=== PATIENT | female | born 1970 | race African-American/Black ===

== ENCOUNTER 2016-10-14 16:54 | Emergency (ER) | payer SELFPAY ==
[~2016-10-14] VITALS: Ht 160 cm; Wt 98.9 kg
[2016-10-14 17:02] VITALS: BP 139/80
--- NOTE | 2016-10-14 17:56 | ED.ADGEN ---
Past Medical History Past Medical History: Cancer, Hypertension Past Surgical History: , Hysterectomy Additional Past Surgical Histo: Left mastectomy Alcohol Use: Occasionally Additional Information: ETOH today Drug Use: None Assessment Additional comments: I signed up for this patient. She left without being seen prior to being roomed. JENNIFFER FOWLER MD Oct 14, 2016 17:56
== END 2016-10-14 17:55 | disposition left against medical advice (07) ==
LOC: ER 16:54
DX: R56.9 Unspecified convulsions (principal); I10 Essential (primary) hypertension; Z90.710 Acquired absence of both cervix and uterus; F17.200 Nicotine dependence, unspecified, uncomplicated; Z53.21 Procedure and treatment not carried out due to patient leaving prior to being seen by health care provider
CPT/HCPCS: 99281

== ENCOUNTER 2017-09-24 09:55 | Inpatient (IN) | payer BC ==
[2017-09-24] MEDS: MORPHINE SULFATE 4 MG/ML DISP.SYRIN. IV ×4 (11:11→23:12)
[2017-09-24] MEDS: LABETALOL 20 MG/4 ML DISP.SYRIN. IVP (11:11)
[2017-09-24] MEDS: POTASSIUM CL 20MEQ D5-0.45NACL 1,000 ML IV ×2 (13:45→19:36)
[2017-09-24] MEDS: fentaNYL PF VIAL 100 MCG/2 ML VIAL IV (15:37)
[2017-09-24] MEDS: KETOROLAC 30 MG/ML INJ. IV (15:37)
[2017-09-24] MEDS: SALIVA STIMULANT AGENT 44ML SPRAY BOTTLE. PO (16:00)
[2017-09-24] MEDS: hydrALAZINE 20 MG/ML VIAL. IVP (16:19)
[2017-09-24] MEDS: diphenhydrAMINE 50 MG/ML VIAL IVP (23:13)
[2017-09-24] MEDS: PHENOL ORAL SPRAY 177ML BOTTLE. PO (23:20)
[2017-09-25] MEDS: PHENOL ORAL SPRAY 177ML BOTTLE. PO ×4 (02:03→22:00)
[2017-09-25] MEDS: MORPHINE SULFATE 4 MG/ML DISP.SYRIN. IV ×6 (02:03→20:09)
[2017-09-25] MEDS: POTASSIUM CL 20MEQ D5-0.45NACL 1,000 ML IV ×2 (05:30→20:01)
[2017-09-25 07:17] LABS: ADD MAN DIFF? NO
[2017-09-25 07:18] LABS: BASO % 0 % (0-3); EOS % 0 % (0-3); HEMATOCRIT 40.8 % (36.0-47.0); HEMOGLOBIN 13.4 g/dL (12.0-15.5); LYMPH # 1.3 x10^3/uL (1.0-4.8); LYMPH % 33 % (24-48); MEAN CORPUSCULAR HEMOGLOBIN 30 pg (25-35); MEAN CORPUSCULAR HGB CONC 33 g/dL (31-37); MEAN CORPUSCULAR VOLUME 91 fL (79-100); MONO # 0.4 x10^3/uL (0.0-1.1); MONO % 9 % (0-9); NEUT # 2.3 x10^3uL (1.8-7.7); NEUT % 57 % (31-73); PLATELET COUNT 152 x10^3/uL (140-400); RED BLOOD COUNT 4.51 x10^6/uL (3.50-5.40); RED CELL DISTRIBUTION WIDTH 14.6 % (11.5-14.5); WHITE BLOOD COUNT 3.9 x10^3/uL (4.0-11.0)
[2017-09-25 07:46] LABS: ALBUMIN 3.2 g/dL (3.4-5.0); ALBUMIN/GLOBULIN RATIO 0.8 (1.0-1.7); ALK PHOS 67 U/L (46-116); ALT (SGPT) 32 U/L (14-59); ANION GAP 8 (6-14); AST (SGOT) 28 U/L (15-37); BLOOD UREA NITROGEN 10 mg/dL (7-20); BUN/CREATININE RATIO 11 (6-20); CALCIUM 8.4 mg/dL (8.5-10.1); CARBON DIOXIDE 29 mmol/L (21-32); CHLORIDE 103 mmol/L (98-107); CREATININE 0.9 mg/dL (0.6-1.0); GFR 80.9; GLUCOSE 107 mg/dL (70-99); POTASSIUM 3.6 mmol/L (3.5-5.1); SODIUM 140 mmol/L (136-145); TOTAL BILIRUBIN 0.9 mg/dL (0.2-1.0); TOTAL PROTEIN 7.4 g/dL (6.4-8.2)
[2017-09-25] MEDS: LABETALOL 20 MG/4 ML DISP.SYRIN. IVP (08:27)
[2017-09-25] MEDS ORDERED: CONTRAST GIVEN MC ×2 (08:30→11:00)
[2017-09-25] MEDS: IOHEXOL 300 MG/ML 100ML VIAL. PO (08:30)
[2017-09-25] MEDS ORDERED: LIDOCAINE 2%/EPI 1:100,000 20 ML VIAL. (10:25)
[2017-09-25] MEDS ORDERED: IOHEXOL 240 MG/ML 50ML VIAL. (10:38)
[2017-09-25] MEDS ORDERED: fentaNYL PF VIAL 100 MCG/2 ML VIAL ×2 (10:44→11:54)
[2017-09-25] MEDS: IOHEXOL 300 MG/ML 50 ML VIAL. IART (10:45)
[2017-09-25] MEDS: fentaNYL PF VIAL 100 MCG/2 ML VIAL IV (10:45)
[2017-09-25] MEDS: LIDOCAINE 2%/EPI 1:100,000 20 ML VIAL. IJ (10:45)
[2017-09-25] MEDS: hydrALAZINE 20 MG/ML VIAL. IVP (10:57)
[2017-09-25] MEDS ORDERED: MIDAZOLAM HCL/PF 2 MG/2 ML VIAL. (12:32)
[2017-09-25] MEDS: MIDAZOLAM HCL/PF 2 MG/2 ML VIAL. IV (12:45)
[2017-09-25] MEDS: KETOROLAC 15 MG/ML VIAL. IV (17:44)
[2017-09-25] MEDS: FAMOTIDINE 20 MG/2 ML VIAL IVP (19:51)
[2017-09-26] MEDS: hydrALAZINE 20 MG/ML VIAL. IVP ×3 (03:57→19:53)
[2017-09-26] MEDS: MORPHINE SULFATE 4 MG/ML DISP.SYRIN. IV ×4 (03:58→19:53)
[2017-09-26 03:59] LABS: ADD MAN DIFF? NO
[2017-09-26 04:03] LABS: BASO % 0 % (0-3); EOS % 0 % (0-3); HEMOGLOBIN 13.1 g/dL (12.0-15.5); LYMPH # 0.9 x10^3/uL (1.0-4.8); LYMPH % 26 % (24-48); MEAN CORPUSCULAR HEMOGLOBIN 30 pg (25-35); MEAN CORPUSCULAR HGB CONC 33 g/dL (31-37); MEAN CORPUSCULAR VOLUME 92 fL (79-100); MONO # 0.4 x10^3/uL (0.0-1.1); MONO % 11 % (0-9); NEUT # 2.3 x10^3uL (1.8-7.7); NEUT % 63 % (31-73); PLATELET COUNT 120 x10^3/uL (140-400); RED BLOOD COUNT 4.35 x10^6/uL (3.50-5.40); RED CELL DISTRIBUTION WIDTH 14.8 % (11.5-14.5); WHITE BLOOD COUNT 3.6 x10^3/uL (4.0-11.0)
[2017-09-26] MEDS: diphenhydrAMINE 50 MG/ML VIAL IVP ×2 (04:03→19:52)
[2017-09-26 04:19] LABS: ANION GAP 11 (6-14); BLOOD UREA NITROGEN 9 mg/dL (7-20); CALCIUM 8.7 mg/dL (8.5-10.1); CARBON DIOXIDE 24 mmol/L (21-32); CHLORIDE 100 mmol/L (98-107); CREATININE 0.8 mg/dL (0.6-1.0); GFR 92.6; GLUCOSE 104 mg/dL (70-99); POTASSIUM 3.4 mmol/L (3.5-5.1); SODIUM 135 mmol/L (136-145)
[2017-09-26] MEDS: POTASSIUM CL 20MEQ D5-0.45NACL 1,000 ML IV ×3 (05:45→20:06)
[2017-09-26] MEDS: FAMOTIDINE 20 MG/2 ML VIAL IVP ×2 (09:02→19:53)
[2017-09-26] MEDS: KETOROLAC 15 MG/ML VIAL. IV (09:03)
[2017-09-26] MEDS ORDERED: chlorproMAZINE 25 MG in IV DEXTROSE 5% 50 ML IV (20:15)
[2017-09-27] MEDS: LABETALOL 20 MG/4 ML DISP.SYRIN. IVP ×3 (00:06→21:06)
[2017-09-27] MEDS: MORPHINE SULFATE 4 MG/ML DISP.SYRIN. IV ×5 (01:52→20:20)
[2017-09-27] MEDS: diphenhydrAMINE 50 MG/ML VIAL IVP ×2 (01:53→20:21)
[2017-09-27] MEDS: POTASSIUM CL 20MEQ D5-0.45NACL 1,000 ML IV ×2 (05:49→17:59)
[2017-09-27] MEDS: FAMOTIDINE 20 MG/2 ML VIAL IVP ×2 (08:15→20:11)
[2017-09-27] MEDS: KETOROLAC 15 MG/ML VIAL. IV ×3 (08:16→23:33)
[2017-09-27] MEDS: hydrALAZINE 20 MG/ML VIAL. IVP (23:39)
[2017-09-28] MEDS: POTASSIUM CL 20MEQ D5-0.45NACL 1,000 ML IV ×2 (03:16→16:23)
[2017-09-28] MEDS: KETOROLAC 15 MG/ML VIAL. IV ×3 (05:42→19:35)
[2017-09-28] MEDS: LABETALOL 20 MG/4 ML DISP.SYRIN. IVP (05:43)
[2017-09-28] MEDS: diphenhydrAMINE 50 MG/ML VIAL IVP (05:43)
[2017-09-28 07:32] LABS: ANION GAP 9 (6-14); BLOOD UREA NITROGEN 6 mg/dL (7-20); CALCIUM 8.1 mg/dL (8.5-10.1); CARBON DIOXIDE 22 mmol/L (21-32); CHLORIDE 102 mmol/L (98-107); CREATININE 0.7 mg/dL (0.6-1.0); GFR 108.1; GLUCOSE 97 mg/dL (70-99); POTASSIUM 3.3 mmol/L (3.5-5.1); SODIUM 133 mmol/L (136-145)
[2017-09-28] MEDS: FAMOTIDINE 20 MG/2 ML VIAL IVP ×2 (08:23→21:14)
[2017-09-28] MEDS: MORPHINE SULFATE 4 MG/ML DISP.SYRIN. IV (08:44)
[2017-09-28] MEDS ORDERED: POTASSIUM CHLORIDE 20MEQ 50 ML IV (16:00)
[2017-09-28] MEDS: POTASSIUM CHLORIDE 10 MEQ in IV NORMAL SALINE 100ML 100 ML IV ×4 (16:25→21:15)
[2017-09-29] MEDS: KETOROLAC 15 MG/ML VIAL. IV (04:59)
[2017-09-29] MEDS: POTASSIUM CL 20MEQ D5-0.45NACL 1,000 ML IV ×2 (04:59→13:45)
[2017-09-29 05:50] LABS: ANION GAP 10 (6-14); BLOOD UREA NITROGEN 4 mg/dL (7-20); CALCIUM 8.6 mg/dL (8.5-10.1); CARBON DIOXIDE 23 mmol/L (21-32); CHLORIDE 104 mmol/L (98-107); CREATININE 0.7 mg/dL (0.6-1.0); GFR 108.1; GLUCOSE 99 mg/dL (70-99); POTASSIUM 3.5 mmol/L (3.5-5.1); SODIUM 137 mmol/L (136-145)
[2017-09-29] MEDS: FAMOTIDINE 20 MG/2 ML VIAL IVP ×2 (10:04→21:08)
[2017-09-29] MEDS: hydrALAZINE 20 MG/ML VIAL. IVP (21:09)
[2017-09-29] MEDS: FAMOTIDINE 20 MG TABLET. PO (23:53)
[2017-09-29] MEDS: LABETALOL 20 MG/4 ML DISP.SYRIN. IVP (23:53)
[2017-09-30] MEDS: diphenhydrAMINE 50 MG/ML VIAL IVP (00:02)
[2017-09-30] MEDS: FAMOTIDINE 20 MG TABLET. PO (08:46)
[2017-09-30] MEDS: hydrALAZINE 20 MG/ML VIAL. IVP (08:48)
[2017-09-30] MEDS: cloNIDine HCL 0.1 MG TABLET PO (12:11)
[2017-09-30] MEDS: hydroCHLOROthiazide 12.5 MG CAPSULE PO (12:46)
== END 2017-09-30 15:35 | disposition home or self-care (01) | DRG 271 ==
LOC: 6 SOUTH 09:55
PROC: 0JPV3XZ Removal of Tunneled Vascular Access Device from Upper Extremity Subcutaneous Tissue and Fascia, Percutaneous Approach (ICD-10-PCS; 2017-09-24)
PROC: 02PA33Z Removal of Infusion Device from Heart, Percutaneous Approach (ICD-10-PCS; 2017-09-24)
PROC: 02CQ3ZZ Extirpation of Matter from Right Pulmonary Artery, Percutaneous Approach (ICD-10-PCS; principal; 2017-09-25)
DX: T82.519A Breakdown (mechanical) of unspecified cardiac and vascular devices and implants, initial encounter (principal); K56.51 Intestinal adhesions [bands], with partial obstruction; K56.600 Partial intestinal obstruction, unspecified as to cause; C50.919 Malignant neoplasm of unspecified site of unspecified female breast; I11.9 Hypertensive heart disease without heart failure; J98.11 Atelectasis; K56.7 Ileus, unspecified; E66.9 Obesity, unspecified; E87.6 Hypokalemia; F17.210 Nicotine dependence, cigarettes, uncomplicated; K52.9 Noninfective gastroenteritis and colitis, unspecified; Y83.8 Other surgical procedures as the cause of abnormal reaction of the patient, or of later complication, without mention of misadventure at the time of the procedure; Y93.E1 Activity, personal bathing and showering; Z68.34 Body mass index [BMI] 34.0-34.9, adult; Z85.3 Personal history of malignant neoplasm of breast; Z90.710 Acquired absence of both cervix and uterus; Z92.21 Personal history of antineoplastic chemotherapy; Y92.89 Other specified places as the place of occurrence of the external cause
CPT/HCPCS: 36415; 36590; 37197; 71045; 74022; 74250; 75741; 76937; 77001; 80048; 80053; 85025; 87045; 99152; 99153; 99406; C1769; C1887; C1892; C1894; J0360; J1200; J1644; J1885; J2250; J2270; J3010; J3490; Q9967; S0028